=== PATIENT | male | born 1960 | race Caucasian/White ===

== ENCOUNTER 2019-08-11 15:36 | Emergency (ER) | payer OTHER, SELFPAY ==
[2019-08-11 15:39] VITALS: BP 149/112; PULSE 98; RESP 20; TEMP 36.4; O2SAT 100
[2019-08-11 16:04] VITALS: BP 147/82; PULSE 84; RESP 16; O2SAT 97
--- NOTE | 2019-08-11 16:08 | ECG_ITS ---
Measurements Intervals [place] Rate: 80 P: 49 CO: 144 QRS: -34 QRSD: 113 T: 67 QT: 376 QTc: 434 Interpretive Statements SINUS RHYTHM LEFT AXIS DEVIATION INCOMPLETE LEFT BUNDLE BRANCH BLOCK CANNOT RULE OUT SEPTAL INFARCT, AGE INDETERMINATE BORDERLINE ST-T WAVE ABNORMALITY- LATERAL LEADS BASELINE ARTIFACT- I, II, III, AVR, AVL, AVF, V1-V2 ABNORMAL ECG Electronically Signed On 08-11-2019 19:38:55 CDT by Gabriel Ruiz D.O.
--- NOTE | 2019-08-11 16:20 | ED.GENADULT ---
HPI - General Adult General Chief complaint: Recheck/Abnormal Lab/Rx <Jakub Reed PA-C - Last Filed: 08/11/19 16:41> Stated complaint: HIGH BLOOD PRESSURE <Jakub Reed PA-C - Last Filed: 08/11/19 16:41> Time Seen by Provider: 08/11/19 15:49 <Jakub Reed PA-C - Last Filed: 08/11/19 16:41> Source: patient <Jakub Reed PA-C - Last Filed: 08/11/19 16:41> Mode of arrival: ambulatory <Jakub Reed PA-C - Last Filed: 08/11/19 16:41> Limitations: no limitations <Jakub Reed PA-C - Last Filed: 08/11/19 16:41> History of Present Illness HPI narrative: Patient is a 59-year-old male who presents for evaluation of his elevated blood pressure readings at home patient with history of hypertension was concerned due to elevated blood pressure has history of blood pressure and is taking his medication has been compliant denies any symptoms and is otherwise resting comfortably in the room upon arrival <Jakub Reed PA-C - Last Filed: 08/11/19 16:41> Related Data Home medications: Home Medications Medication Instructions Recorded Confirmed amlodipine 10 mg PO DAILY 08/11/19 oxybutynin chloride 10 mg PO DAILY 08/11/19 tamsulosin 0.4 mg PO DAILY 08/11/19 valsartan 80 mg PO DAILY 08/11/19 <Jakub Reed PA-C - Last Filed: 08/11/19 16:41> Allergies/adverse reactions: Allergies Allergy/AdvReac Type Severity Reaction Status Date / Time No Known Allergies Allergy Verified 08/11/19 16:00 <Jakub Reed PA-C - Last Filed: 08/11/19 16:41> Review of Systems Review of Systems: All systems reviewed & are unremarkable except as noted in HPI and below <Jakub Reed PA-C - Last Filed: 08/11/19 16:41> PMFSH Past Medical History Medical History: Medical History Hypertension <HASMUKH Kwong Last Filed: 08/11/19 16:41> Social History Social History: Social History Smoking status: Never smoker Alcohol intake: never <Jakub Reed PA-C - Last Filed: 08/11/19 16:41> Exam Narrative: Exam Narrative: GENERAL: Well-appearing, well-nourished, and in no acute distress. HEAD: Normocephalic, atraumatic. EYES: PERRLA and EOMI. ENT: Nares clear, no rhinorrhea or epistaxis. Mucous membranes moist. CHEST: Clear to auscultation. No respiratory distress. No wheezes rales or rhonchi HEART: Regular rate and rhythm. No murmur heard. Normal peripheral pulses. ABDOMEN: Soft, nontender, nondistended EXTREMITIES: Normal range of motion. No edema. SKIN: Warm, dry, no rash. NEURO: No focal deficits. Alert and oriented x3. Cranial nerves II through XII grossly intact PSYCH: Normal mood and affect. <Jakub Reed PA-C - Last Filed: 08/11/19 16:41> Course Course Emergency Course: Patient in the room in no distress aware of case findings treatment plan and diagnosis with normalizing blood pressure asymptomatic felt appropriate for discharge home <Jakub Reed PA-C - Last Filed: 08/11/19 16:41> Vital Signs Vital signs: Vital Signs Temperature 97.6 F 08/11/19 15:39 Pulse Rate 98 08/11/19 15:39 Respiratory Rate 20 08/11/19 15:39 Blood Pressure 149/112 H 08/11/19 15:39 Pulse Oximetry 100 08/11/19 15:39 Temperature 97.6 F 08/11/19 15:39 Pulse Rate 70 08/11/19 16:46 Respiratory Rate 18 08/11/19 16:46 Blood Pressure 125/83 08/11/19 16:46 Pulse Oximetry 97 08/11/19 16:46 <Jakub Reed PA-C - Last Filed: 08/11/19 16:41> Vital Signs Temperature 97.6 F 08/11/19 15:39 Pulse Rate 98 08/11/19 15:39 Respiratory Rate 20 08/11/19 15:39 Blood Pressure 149/112 H 08/11/19 15:39 Pulse Oximetry 100 05/09/20 15:39 Temperature 97.6 F 08/11/19 15:39 Pulse Rate 70 08/11/19 16:46 Respiratory Rate 18 08/11/19 16:46 Blood Press
[2019-08-11 16:46] VITALS: BP 125/83; PULSE 70; RESP 18; O2SAT 97
[2019-08-11 17:01] VITALS: BP 126/81; PULSE 72; RESP 18; O2SAT 97
== END 2019-08-11 17:02 | disposition home or self-care (01) ==
LOC: ANHED 16:30
PROVIDERS: Emergency Provider Emergency Medicine; PCP Family Medicine
DX: I10 Essential (primary) hypertension (principal); I44.7 Left bundle-branch block, unspecified; R94.31 Abnormal electrocardiogram [ECG] [EKG]
CPT/HCPCS: 93005; 99283

== ENCOUNTER 2020-01-03 06:45 | Outpatient (CLI) | payer OTHER, SELFPAY ==
[2020-01-03 08:54] LABS: Prostate Specific Antigen 6.5 ng/mL (< OR = 4.0)
== END 2020-01-03 06:46 | disposition home or self-care (01) ==
PROVIDERS: PCP Family Medicine
DX: R97.20 Elevated prostate specific antigen [PSA] (principal)
CPT/HCPCS: 36415; 84153

== ENCOUNTER 2020-05-05 06:39 | Outpatient (CLI) | payer OTHER, SELFPAY ==
[2020-05-05 10:15] LABS: Prostate Specific Antigen 6.3 ng/mL (< OR = 4.0)
== END 2020-05-05 06:40 | disposition home or self-care (01) ==
PROVIDERS: PCP Family Medicine
DX: C61 Malignant neoplasm of prostate (principal)
CPT/HCPCS: 36415; 84153; G0103

== ENCOUNTER 2020-08-05 07:43 | Outpatient (CLI) | payer OTHER, SELFPAY ==
--- NOTE | 2020-08-05 | EST_ITS ---
Patient Info Name: Jeremy Centeno Age: 60 years : 1960 Gender: Male Ht: 68 in Wt: 155 lbs BSA: 1.84 m2 Exam Date: 08/05/2020 9:05 AM Exam Location: [facility] Stress Patient Status: Outpatient Admit Date: 08/05/2020 Staff Ordering Physician: QuiqueRigo MD Attending Provider: Quique, Rigo Colin MD Exercise Technologist: Sylvia Lewis RDCS Exercise Physician: Gabriel Ruiz DO Exam Type: CA stress test treadmill Study Info Indications R07.89 - Other chest pain A treadmill exercise stress test was performed. Summary 1. 1. Inconclusive Sushant exercise stress test for ischemic ST changes by ECG criteria as patient achieved only 76% MPHR for age group. 2. 2. Mildly reduced functional capacity, achieving 9 METs of workload. 3. 3. Ventricular bigeminy during exercise and development of ventricular couplets and triplets closer to peak exercise. 4. 4. Appropriate HR response to exercise. 5. 5. Appropriate HR recovery at 1 minute post exercise. 6. 6. No imaging with stress testing. 7. 7. Patient informed of the above results. Protocol: Sushant Stress ECG Details Stage: REST Duration (min): 0 min : 58 sec Speed (mph): 0.0 Grade (%): 0 HR (bpm): 52 SBP (mmHg): 130 DBP (mmHg): 76 METS: --- Stage: REST Duration (min): 11 min : 0 sec Speed (mph): 0.0 Grade (%): 0 HR (bpm): 61 SBP (mmHg): 130 DBP (mmHg): 76 METS: --- Stage: STAGE 1 Duration (min): 1 min : 0 sec Speed (mph): 1.7 Grade (%): 10 HR (bpm): 73 SBP (mmHg): 130 DBP (mmHg): 76 METS: --- Stage: STAGE 1 Duration (min): 2 min : 0 sec Speed (mph): 1.7 Grade (%): 10 HR (bpm): 76 SBP (mmHg): 130 DBP (mmHg): 76 METS: --- Stage: STAGE 1 Duration (min): 3 min : 0 sec Speed (mph): 1.7 Grade (%): 10 HR (bpm): 78 SBP (mmHg): 112 DBP (mmHg): 62 METS: --- Stage: STAGE 2 Duration (min): 1 min : 0 sec Speed (mph): 2.5 Grade (%): 12 HR (bpm): 87 SBP (mmHg): 112 DBP (mmHg): 62 METS: --- Stage: STAGE 2 Duration (min): 2 min : 0 sec Speed (mph): 2.5 Grade (%): 12 HR (bpm): 96 SBP (mmHg): 123 DBP (mmHg): 60 METS: --- Stage: STAGE 2 Duration (min): 3 min : 0 sec Speed (mph): 2.5 Grade (%): 12 HR (bpm): 97 SBP (mmHg): 123 DBP (mmHg): 60 METS: --- Stage: STAGE 3 Duration (min): 1 min : 0 sec Speed (mph): 3.4 Grade (%): 14 HR (bpm): 106 SBP (mmHg): 116 DBP (mmHg): 65 METS: --- Stage: STAGE 3 Duration (min): 1 min : 39 sec Speed (mph): 3.4 Grade (%): 14 HR (bpm): 115 SBP (mmHg): 116 DBP (mmHg): 65 METS: --- Stage: RECOVERY Duration (min): 0 min : 20 sec Speed (mph): 1.5 Grade (%): 0 HR (bpm): 123 SBP (mmHg): 116 DBP (mmHg): 65 METS: --- Stage: RECOVERY Duration (min): 1 min : 20 sec Speed (mph): 0.0 Grade (%): 0 HR (bpm):
== END 2020-08-05 07:44 | disposition home or self-care (01) ==
PROVIDERS: PCP Family Medicine; Visit Provider Family Medicine
DX: R07.89 Other chest pain (principal)
CPT/HCPCS: 93017

== ENCOUNTER 2020-09-12 06:37 | Outpatient (CLI) | payer OTHER, SELFPAY ==
[2020-09-12 11:21] LABS: Prostate Specific Antigen 6.6 ng/mL (< OR = 4.0)
== END 2020-09-12 06:38 | disposition home or self-care (01) ==
LOC: ANHLAB 06:44
PROVIDERS: PCP Family Medicine
DX: C61 Malignant neoplasm of prostate (principal)
CPT/HCPCS: 36415; 84153

== ENCOUNTER 2023-05-24 10:47 | Emergency (ER) | payer OTHER, SELFPAY ==
--- NOTE | ~2023-05-24 | XR_ITS ---
EXAMINATION: XR shoulder RT min 2V DATE: 05/24/2023 15:53 INDICATION: Right shoulder pain. TECHNIQUE: 4 views of right shoulder were obtained. 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 No acute fracture. There i s severe osteoarthritis of distal radioulnar joint and moderate osteoarthritis of triscaphe joint. Th ere is narrowing of the subacromial space, consistent with rotator cuff tear. IMPRESSION: 1. Polyarticular osteoarthritis. 2. Right rotator cuff tear. 3. 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 Reviewed, dictated and finalized at location E. STRINGER
--- NOTE | ~2023-05-24 | CT_ITS ---
EXAMINATION: CT cervical spine wo con DATE: 05/24/2023 15:59 INDICATION: Right upper extremity pain. TECHNIQUE: Computed tomography (CT) of the cervical spine was performed without intravenous contrast. Automated exposure control and iterative reconstruction technique were employed. The dose-length pro duct was 303.28 mGy-cm. COMPARISON: None FINDINGS: There is 14 degrees dextroscoliosis of cervical spine. There is kyphosis of cervical spine. Vertebral body heights are normal. There is mildly decreased disc height at C2-C3, severely decrease d disc height at C3-C4, moderately decreased disc height at C4-C5 and C5-C6, severely decreased disc height at C6-C7, and mildly decreased disc height at C7-T1. The following disc levels are specificall y discussed: C2-C3: There is mild bilateral uncovertebral joint osteoarthritis. There is mild right and moderate l eft facet joint osteoarthritis. There is mild left neural foraminal stenosis. There is no central can al stenosis. C3-C4: There is severe bilateral uncovertebral joint osteoarthritis. There is mild right and severe l eft facet joint osteoarthritis. There is mild right and severe left neural foraminal stenosis. There is mild central canal stenosis. C4-C5: There is mild bilateral uncovertebral joint osteoarthritis. There is mild right and moderate l eft facet joint osteoarthritis. There is mild left neural foraminal stenosis. There is mild central c anal stenosis. C5-C6: There is mild right and moderate left uncovertebral joint osteoarthritis. There is mild right and moderate left facet joint osteoarthritis. There is mild bilateral neural foraminal stenosis. Ther e is mild central canal stenosis. C6-C7: There is severe bilateral uncovertebral joint osteoarthritis. There is mild bilateral facet emely int osteoarthritis. There is moderate right and mild left neural foraminal stenosis. There is mild ce ntral canal stenosis. C7-T1: There is no uncovertebral joint osteoarthritis. There is moderate right and severe left facet joint osteoarthritis. There is no neural foraminal stenosis. There is no central canal stenosis. IMPRESSION: 1. Severe cervical spondylosis. 2. Cervical dextroscoliosis. Reviewed, dictated and finalized at location E. GENCY MEDICAL SERVICE MANAGER
--- NOTE | ~2023-05-24 | XR_ITS ---
EXAMINATION: XR elbow RT min 3V DATE: 05/24/2023 15:53 INDICATION: Right elbow pain. TECHNIQUE: 4 views of right elbow were obtained. COMPARISON: None. FINDINGS: Bone alignment is normal. No fracture. There is mild elbow joint osteoarthritis. No elbow j oint effusion. IMPRESSION: 1. Mild elbow joint osteoarthritis. Reviewed, dictated and finalized at location E. EMS SOFTWARE MANAGER
--- NOTE | 2023-05-24 10:49 | ECG_ITS ---
Measurements Intervals [place] Rate: 75 P: 51 AR: 145 QRS: -58 QRSD: 109 T: 54 QT: 370 QTc: 416 Interpretive Statements SINUS RHYTHM WITH OCCASIONAL SUPRAVENTRICULAR PREMATURE COMPLEXES MARKED LEFT AXIS DEVIATION [QRS AXIS < -30] COMPARED TO ECG 08/11/2019 16:05:49 NO SIGNIFICANT CHANGES Electronically Signed On 05-24-2023 15:45:57 [employer] by Dustin Chao M.D.
[2023-05-24 10:56] VITALS: BP 135/85; PULSE 75; RESP 16; TEMP 36.5; O2SAT 100
--- NOTE | 2023-05-24 15:35 | ED.UPPEXIN ---
HPI - Extremity Injury (Upper) General Chief Complaint: Extremity Injury, Upper <Abi Marroquin PA-C - Last Filed: 05/24/23 19:27> Stated Complaint: right arm pain, no injury <HASMUKH Guallpa Last Filed: 05/24/23 19:27> Time Seen by Provider: 05/24/23 15:35 <HASMUKH Guallpa Last Filed: 05/24/23 19:27> Focused HPI: This is a 63 year old male that presents to the ER for right arm pain. Ongoing over the last week. Associated with tingling in his right hand. No recent injuries or trauma. Denies decreased ROM. GENERAL: Well-appearing, well-nourished, and in no acute distress. HEAD: Normocephalic, atraumatic. CHEST: Clear to auscultation. ?No respiratory distress. HEART: Regular rate and rhythm.? NEURO: ?Alert and oriented x3. Patient screened in triage and initial orders placed.? ?Additional care and disposition to be based upon?diagnostic testing and treatment. <Abi Marroquin PA-C - Last Filed: 05/24/23 19:27> Focused HPI: This is a 63 year old male that presents to the ER for right arm pain, R elbow/shoulder. Ongoing over the last week. Associated with intermittent tingling in his right fingers, reporting it affects all fingers. No recent injuries or trauma. No recent strenuous activity. Denies decreased ROM. Denies weakness. Denies CP/SOB. Has been taking off brand Aspirin w/ some improvement. GENERAL: Well-appearing, well-nourished, and in no acute distress. HEAD: Normocephalic, atraumatic. CHEST: Clear to auscultation. ?No respiratory distress. HEART: Regular rate and rhythm.? NEURO: ?Alert and oriented x3. Patient screened in triage and initial orders placed.? ?Additional care and disposition to be based upon?diagnostic testing and treatment. <HASMUKH Wong Last Filed: 05/24/23 17:40> Source: patient <HASMUKH Guallpa Last Filed: 05/24/23 19:27> Mode of arrival: ambulatory <Abi Marroquin PA-C - Last Filed: 05/24/23 19:27> Limitations: no limitations <Abi Marroquin PA-C - Last Filed: 05/24/23 19:27> Related Data Home Medications: Home Medications Medication Instructions Recorded Confirmed amlodipine 10 mg tablet 10 mg PO DAILY 08/11/19 02/15/23 tamsulosin 0.4 mg capsule 0.4 mg PO DAILY 08/11/19 02/15/23 valsartan 80 mg tablet 80 mg PO DAILY 08/11/19 02/15/23 aspirin 81 mg tablet,delayed 81 mg PO DAILY 10/22/21 02/15/23 release <Abi Marroquin PA-C - Last Filed: 05/24/23 19:27> Allergies/Adverse Reactions: Allergies Allergy/AdvReac Type Severity Reaction Status Date / Time lisinopril Allergy Unknown Cough Verified 02/15/23 08:22 <Abi Marroquin PA-C - Last Filed: 05/24/23 19:27> Review of Systems Review of Systems: CONSTITUTIONAL: Denies fever, chills, or sweats. CARDIOVASCULAR: Denies chest pain RESPIRATORY: Denies dyspnea. MUSCULOSKELETAL: See HPI. NEUROLOGIC: See HPI. <[place] PA-C - Last Filed: 05/24/23 17:40> All systems reviewed & are unremarkable except as noted in HPI and below <[place] PA-C - Last Filed: 05/24/23 17:40> PMFSH Past Medical History Medical History: Medical History Hypertension <Abi Marroquin PA-C - Last Filed: 05/24/23 19:27> Social History Social History: Social History Smoking status: Never smoker Alcohol intake: never Spiritual care concerns: No <Abi Marroquin PA-C - Last Filed: 05/24/23 19:27> Exam Narrative: GENERAL: Well appearing, well-nourished, non-toxic, in no acute distress. HEAD: Normocephalic, atraumatic. NECK: No midline spinal tenderness. No significant tenderness around paraspinal musculature. RESPIRATORY: Airway patent, respirations nonlabored. CARDIOVASCULAR: Regular rate and rhythm. Radial pulses easily palpable. MUSCULOSKELETAL: Moves all extremities. No gross de
[2023-05-24] MEDS: ACETAMINOPHEN 500 MG TABLET 1000 MG PO (16:10)
[2023-05-24] MEDS: KETOROLAC (*BKC) 60 MG/2 ML VIAL IM (17:35)
[2023-05-24 18:30] VITALS: BP 145/88; O2SAT 100
== END 2023-05-24 19:25 | disposition home or self-care (01) ==
LOC: ANHED 17:51
PROVIDERS: Emergency Provider Physician Assistant; PCP Family Medicine
DX: S46.001A Unspecified injury of muscle(s) and tendon(s) of the rotator cuff of right shoulder, initial encounter (principal); M25.511 Pain in right shoulder; R20.2 Paresthesia of skin; I10 Essential (primary) hypertension; X58.XXXA Exposure to other specified factors, initial encounter
CPT/HCPCS: 72125; 73030; 73080; 93005; 96372; 99284; A4565; A9270; J1885